=== PATIENT | male | born 1990 | race Caucasian/White ===

== ENCOUNTER 2025-06-03 05:37 | Emergency (ER) | payer OTHER ==
[~2025-06-03] VITALS: Ht 175.3 cm; Wt 76.0 kg
[2025-06-03 05:45] VITALS: O2SAT 98
[2025-06-03] MEDS ORDERED: RALT400T MT (06:28)
[2025-06-03] MEDS ORDERED: EMTR1TAB20 MT (06:28)
[2025-06-03 07:35] LABS: CLARITY URINE CLEAR (CLEAR); COLOR URINE YELLOW (YELLOW); GLUCOSE URINE NEGATIVE (NEGATIVE); KETONES URINE NEGATIVE (NEGATIVE); LEUKOCYTE ESTERASE URINE NEGATIVE (NEGATIVE); NITRITE URINE NEGATIVE (NEGATIVE); OCCULT BLOOD URINE NEGATIVE (NEGATIVE); PH URINE 7.0 (4.5-8.0); PROTEIN URINE NEGATIVE (NEGATIVE); SPECIFIC GRAVITY URINE 1.009 (1.005-1.030); UROBILINOGEN URINE 0.2 E.U./dL (0.2-1.0)
[2025-06-03 07:57] VITALS: BP 126/85; PULSE 78; RESP 18; TEMP 36.9; O2SAT 98
[2025-06-05 04:09] LABS: CHLAMYDIA TRACHOMATIS NAA Negative (Negative); NEISSERIA GONORRHOEAE NAA Negative (Negative)
== END 2025-06-03 08:12 | disposition home or self-care (01) ==
LOC: ER 05:37
DX: Z11.3 Encounter for screening for infections with a predominantly sexual mode of transmission (principal); Z79.624 Long term (current) use of inhibitors of nucleotide synthesis
CPT/HCPCS: 36415; 81003; 86592; 87491; 87591; 99283